=== PATIENT | female | born 1960 | race Caucasian/White ===

== ENCOUNTER 2018-04-24 14:52 | Inpatient (IN) | payer MEDICAID, OTHER ==
[~2018-04-24] VITALS: Ht 162.6 cm; Wt 71.2 kg
[~2018-04-24 14:52] MED LIST: ASPIRIN PO; LEVOTHYROXINE PO; LIPITOR PO
[2018-04-24] MEDS ORDERED: VANCOMYCIN 1 G PREMIX 200 ML IV ONE (15:00)
[2018-04-24] MEDS ORDERED: SODIUM CHLORIDE 0.9% 1000ML BAG (SEPSIS BOLUS) IV ONE (15:00)
[2018-04-24] MEDS ORDERED: PIPERACILLIN/TAZ 3.375G PREMIX 50 ML IV ONE (15:00)
[2018-04-24 16:51] LABS: BASOPHILS % 0.3 % (0.0-2.0); EOSINOPHILS % 1.5 % (0.0-5.0); HEMATOCRIT. 41.1 % (36.0-48.0); HEMOGLOBIN. 13.9 g/dL (12.0-16.0); LYMPHOCYTES % 21.9 % (20.0-50.0); MEAN CORPUSCULAR HEMOGLOBIN 31.4 pg (28.0-32.0); MEAN CORPUSCULAR VOLUME 93.2 fL (81.0-99.0); MEAN PLATELET VOLUME 8.8 fl (7.4-10.4); NEUTROPHILS % 72.3 % (40.0-76.0); PLATELET 132 x1000/uL (130-400); RED BLOOD CELL COUNT 4.42 mill/uL (4.2-5.4); RED CELL DISTRIBUTION WIDTH 13.9 % (11.6-14.6)
[2018-04-24 16:52] LABS: CHLORIDE 106 mEq/L (98-107)
[2018-04-24 16:56] LABS: ETHANOL BLOOD < 10 mg/dL
[2018-04-24] MEDS ORDERED: DIPHENHYDRAMINE 50MG/ML VIAL IV ONE (17:00)
[2018-04-24 17:04] LABS: PROTHROMBIN TIME 10.2 sec (9.1-11.1)
[2018-04-24 17:13] LABS: CLARITY URINE CLEAR (CLEAR); COLOR URINE YELLOW (YELLOW); KETONES URINE NEGATIVE (NEGATIVE); LEUKOCYTE ESTERASE URINE 1+ (NEGATIVE); NITRITE URINE NEGATIVE (NEGATIVE); OCCULT BLOOD URINE 1+ (NEGATIVE); PH URINE 7.5 (4.5-8.0); PROTEIN URINE NEGATIVE (NEGATIVE); SPECIFIC GRAVITY URINE 1.005 (1.005-1.030); UROBILINOGEN URINE 0.2 E.U./dL (0.2-1.0)
[2018-04-24 17:38] LABS: *AMPHETAMINES SCREEN URINE NEGATIVE (NEGATIVE); *BARBITURATES SCREEN URINE NEGATIVE (NEGATIVE); *BENZODIAZEPINES SCREEN URINE NEGATIVE (NEGATIVE); *COCAINE SCREEN URINE NEGATIVE (NEGATIVE); METHADONE URINE SCREEN NEGATIVE (NEGATIVE); OPIATES URINE SCREEN NEGATIVE (NEGATIVE)
[2018-04-24 17:39] LABS: CANNABINOID URINE SCREEN NEGATIVE (NEGATIVE); PHENCYCLIDINE URINE SCREEN NEGATIVE (NEGATIVE)
[2018-04-24 21:18] VITALS: BP 110/59
[2018-04-25] VITALS: BP 101/59
[2018-04-25] MEDS ORDERED: ATOR20TA PO (01:46)
[2018-04-25] MEDS ORDERED: LEVO75TA7 PO (01:46)
[2018-04-25] MEDS ORDERED: ASPI-1159 PO (01:46)
[2018-04-25 04:00] VITALS: BP 117/74
[2018-04-25 06:34] LABS: CHLORIDE 114 mEq/L (98-107)
[2018-04-25 06:56] LABS: BASOPHILS % 0.4 % (0.0-2.0); HEMATOCRIT. 38.7 % (36.0-48.0); LYMPHOCYTES % 32.2 % (20.0-50.0); MEAN CORPUSCULAR HEMOGLOBIN 31.3 pg (28.0-32.0); MEAN PLATELET VOLUME 8.8 fl (7.4-10.4); MONOCYTES % 5.2 % (2.0-8.0); NEUTROPHILS % 60.2 % (40.0-76.0); PLATELET 127 x1000/uL (130-400); RED BLOOD CELL COUNT 4.16 mill/uL (4.2-5.4); RED CELL DISTRIBUTION WIDTH 14.2 % (11.6-14.6)
[2018-04-25 08:00] VITALS: BP 118/71
[2018-04-25] MEDS: LEVOTHYROXINE SODIUM 75MCG TABLET PO SCH (08:13)
[2018-04-25] MEDS: ASPIRIN 81MG TABLET PO SCH (08:13)
[2018-04-25 12:00] VITALS: BP 115/73
[2018-04-25] MEDS ORDERED: BISACODYL 5MG TABLET PO PRN (12:15)
[2018-04-25] MEDS: ACETAMINOPHEN 650MG/20.3ML UDC PO PRN ×2 (12:50→20:47)
[2018-04-25 16:00] VITALS: BP 124/78
[2018-04-25] MEDS ORDERED: MAGNESIUM CITRATE 300ML SOLUTION PO NR (20:00)
[2018-04-25 20:17] VITALS: BP 112/71
[2018-04-25] MEDS ORDERED: ATORVASTATIN CALCIUM 20MG TABLET PO SCH (21:00)
[2018-04-25] MEDS: LACTULOSE 20G/30ML UDC PO NR (22:45)
[2018-04-26 00:18] VITALS: BP 109/61
[2018-04-26 04:00] VITALS: BP 125/71
[2018-04-26] MEDS ORDERED: LACTULOSE 20G/30ML UDC PO NR (04:45)
[2018-04-26] MEDS: LACTULOSE 20G/30ML UDC PO NR (04:46)
[2018-04-26] MEDS: LEVOTHYROXINE SODIUM 75MCG TABLET PO SCH (06:34)
[2018-04-26 08:00] VITALS: BP 122/74
[2018-04-26] MEDS: ASPIRIN 81MG TABLET PO SCH (08:36)
[2018-04-26] MEDS ORDERED: SODIUM BICARBONATE 4% (2.4MEQ) 5ML VIAL IV ONE (12:45)
[2018-04-26] MEDS ORDERED: LIDOCAINE HCL 1% 20ML VIAL (Pyxis) INJ ONE (12:45)
[2018-04-26 15:19] VITALS: BP 122/74
== END 2018-04-26 16:20 | disposition home or self-care (01) | DRG 813 ==
LOC: ER 15:09 → 6WST 17:22 → EDBEDREQ 17:31 → EDBEDREQSVC 17:31 → ENRESERV 20:21
PROVIDERS: ADMIT Family Medicine; ATTEND Family Medicine
PROC: 0W9F3ZZ Drainage of Abdominal Wall, Percutaneous Approach (ICD-10-PCS; principal; 2018-04-26)
DX: K91.872 Postprocedural seroma of a digestive system organ or structure following a digestive system procedure (principal); I95.9 Hypotension, unspecified; E03.9 Hypothyroidism, unspecified; E78.5 Hyperlipidemia, unspecified; E86.0 Dehydration; R00.1 Bradycardia, unspecified; Z79.82 Long term (current) use of aspirin; I25.2 Old myocardial infarction; Z86.73 Personal history of transient ischemic attack (TIA), and cerebral infarction without residual deficits; Z79.899 Other long term (current) drug therapy; Y83.8 Other surgical procedures as the cause of abnormal reaction of the patient, or of later complication, without mention of misadventure at the time of the procedure
CPT/HCPCS: 36415; 71045; 74176; 76705; 76942; 80048; 80305; 82962; 83605; 83880; 84145; 84484; 86850; 86900; 93005; 96374; 96375; 97162; 97166; 99285; J1200; J2543; J3370; J3490; J7030